=== PATIENT | female | born 1980 | race Caucasian/White ===

== ENCOUNTER 2019-01-05 14:22 | Outpatient (CLI) | payer OTHER ==
--- NOTE | 2019-01-06 07:54 | RAD ---
XR Chest Pa Lat STANDARD HISTORY: Cough COMPARISON: None FINDINGS: The heart size is normal. The lungs are well expanded without focal areas of consolidation, pneumothorax or pleural effusions. IMPRESSION: No radiographic evidence of acute cardiopulmonary process.
== END 2019-01-05 14:23 | disposition home or self-care (01) ==
LOC: BICRAD 14:22
PROVIDERS: ATTEND Internal Medicine
DX: R05 Cough (principal)
CPT/HCPCS: 71046

== ENCOUNTER 2020-02-08 09:23 | Outpatient (CLI) | payer OTHER ==
--- NOTE | 2020-02-08 09:47 | RAD ---
3 views of the right RIBS: 02/08/2020 COMPARISON: None available HISTORY: Right-sided rib pain, no history of injury FINDINGS: There is a probable old inferior anterolateral 10th rib fracture. No evidence for acute fra cture is seen. IMPRESSION: No acute findings. If symptoms persist, CT may be beneficial.
== END 2020-02-08 09:24 | disposition home or self-care (01) ==
LOC: BICRAD 09:23
PROVIDERS: ATTEND Internal Medicine
DX: R07.81 Pleurodynia (principal)
CPT/HCPCS: 36415; 80053; 80061; 82977; 83690; 85025